=== PATIENT | female | born 1955 | race Caucasian/White ===

== ENCOUNTER 2016-09-22 08:02 | Emergency (ER) | payer MEDICAID, OTHER ==
[~2016-09-22] VITALS: Ht 154.9 cm; Wt 49.1 kg
[~2016-09-22 08:02] MED LIST: SULF1TAB24 PO
[2016-09-22 08:03] VITALS: BP 136/86
[2016-09-22] MEDS ORDERED: DIAZEPAM 5 MG TABLET ONE (08:46)
[2016-09-22] MEDS ORDERED: KETOROLAC 30 MG/1 ML ONE (08:47)
[2016-09-22] MEDS ORDERED: KETOROLAC 30 MG/1 ML IM ONE (09:00)
[2016-09-22] MEDS ORDERED: DIAZEPAM 5 MG TABLET PO ONE (09:00)
== END 2016-09-22 10:36 | disposition home or self-care (01) ==
LOC: ED 10:30
DX: M48.56XA Collapsed vertebra, not elsewhere classified, lumbar region, initial encounter for fracture (principal); M51.27 Other intervertebral disc displacement, lumbosacral region; E78.5 Hyperlipidemia, unspecified; I10 Essential (primary) hypertension; J45.909 Unspecified asthma, uncomplicated
CPT/HCPCS: 72072; 72110; 81001; 96372; 99285; J1885